=== PATIENT | female | born 1955 | race Caucasian/White ===

== ENCOUNTER 2022-11-15 14:13 | Inpatient (IN) | payer MEDICARE ==
[2022-11-15] MEDS ORDERED: DUONEB 0.5-3 MG/3 ml Neb IH ONE ×2 (14:51→15:13)
[2022-11-15] MEDS ORDERED: Sodium Chloride 0.9% 1000 ML 1,000 ML IV STA (14:51)
[2022-11-15] MEDS ORDERED: solu-MEDROL 125 MG, Sterile H2O 10 ml 2 ML IV ONE ×2 (14:51)
[2022-11-15] MEDS ORDERED: Sodium Chloride 0.9% 1000 ML 1,000 ML ONE (15:03)
[2022-11-15] MEDS ORDERED: solu-MEDROL ONE (15:03)
[2022-11-15] MEDS ORDERED: Sterile H2O 10 ml IJ ONE (15:04)
[2022-11-15 15:20] LABS: Absolute Neutrophil Ct (ANC) 14.21 x10^3/uL (1.4-6.9); Basophil (Absolute #) 0.05 x10^3/uL (0-0.4); Eosinophil % 0.2 % (0.00-5.0); Eosinophil (Absolute #) 0.03 x10^3/uL (0-0.5); Hematocrit 38.9 % (35-47); Hemoglobin 13.2 g/dL (12.0-16.0); Lymphocytes % 8.5 % (24.0-44.0); Mean Corpuscular Hemoglobin 29.5 pg (26-32); Mean Corpuscular Hgb Concent. 33.9 g/dL (32-36); Mean Platelet Volume 9.4 fL (7.5-11.0); Monocyte (Absolute #) 1.73 x10^3/uL (0.0-1.3); Monocytes % 9.8 % (0.0-12.0); Neutrophil % 80.4 % (36.0-66.0); Platelet Count 422 x10^3/uL (150-450); Red Blood Count 4.47 x10^6/uL (4.1-5.4); Red Cell Distribution Width 12.5 % (11.5-14.0); White Blood Count 17.7 x10^3/uL (4.0-10.5)
[2022-11-15 15:42] LABS: ALBUMIN 3.7 g/dL (3.5-5.0); ALKALINE PHOSPHATASE 132 U/L (38-126); ANION GAP 10.3 MEQ/L (5-15); BLOOD UREA NITROGEN 6 mg/dL (7-17); CHLORIDE 94 mmol/L (98-107); Calcium 8.3 mg/dL (8.4-10.2); Carbon Dioxide 23 mmol/L (22-30); EST GLOMERULAR FILTRATION RATE > 60.0 ML/MIN; Glucose 140 mg/dL (74-106); NT PRO BNP 415 pg/mL (0-900); Potassium 3.4 mmol/L (3.5-5.1); SGOT/AST 20 U/L (14-36); SGPT/ALT 18 U/L (0-35); SODIUM 124 mmol/L (137-145); Total Protein 7.3 g/dL (6.3-8.2)
[2022-11-15 16:03] LABS: INFLUENZA A NEGATIVE (NEGATIVE); INFLUENZA B NEGATIVE (NEGATIVE); RESPIRATORY SYNCTIAL VIRUS NEGATIVE (Negative); SARS-CoV-2 Xpert Express NEGATIVE (NEGATIVE)
[2022-11-15] MEDS ORDERED: Zithromax 500 MG/ 250 ML NaCl Premix 500 MG/250 ML IVPB IV STA (16:15)
[2022-11-15] MEDS ORDERED: ROCEPHIN 2 Gm-D5w 50ML BAG** 2 G/50 ML IVPB IV STA (16:15)
[2022-11-15 16:40] LABS: Slide Review 1 YES
[2022-11-15] MEDS ORDERED: ROCEPHIN 2 Gm-D5w 50ML BAG** 2 G/50 ML IVPB IV ONE (16:42)
--- NOTE | 2022-11-15 16:43 | ERPHSYRPT ---
- History of Present Illness Time Seen by Provider: 11/15/22 14:18 Patient Subjective Stated Complaint: Pt was diagnosed 4 days ago from [facility] with strep throat and hasn't been able to sleep due to a cough, decreased a ppetite and not taking in any fluids and has gotten really weak and worn down Triage Nursing Assessment: Pt brought to the ER by her son, hypertensive, denies pain, does c/o of a terrible headache that comes and goes, pulses normal, skin n/w/d, has been on antibiotic for 4 days for strep throat and states that her throat has never hurt but has a horrible cough, unable to sleep due to the cough, thinks that she has had a fever off and on Physician History: 67-year-old female with history of tobacco abuse, COPD presented in the ER with 10-day history of URI symptoms with sore throat cough congestion, was evaluated outpatient on penicillin for strep throat getting worsening cough productive of clear to yellow sputum with generalized weakness fatigue and tiredness. Patient reports she has a weight loss of 5 to 6 pounds in the last 2 weeks and does not want to eat or drink anything. Denies any chest pain but wheezing with subjective feeling of fever and chills. Timing/Duration: day(s) (10), gradual onset, worse Activities at Onset: activity Severity of Dyspnea-Max: moderate Severity of Dyspnea-Current: moderate Possible Cause: illness exposure Modifying Factors: Worsens With: coughing, exertion Associated Symptoms: cough, fever, loss of appetite, wheezing, heaviness, productive cough, tightness Allergies/Adverse Reactions: betamethasone [From Celestone] Adverse Reaction (Verified 11/15/22 14:39) Home Medications: No Reportable Medications [No Reported Medications] 11/15/22 [History] Hx Influenza Vaccination/Date Given: Yes Hx Pneumococcal Vaccination/Date Given: No Travel Risk - International Travel Have you traveled outside of the country in past 3 weeks: No - Coronavirus Screening Are you exhibiting any of the following symptoms?: Yes Symptoms: Fever, Cough: New Onset, Shortness of Breath, Vomiting/Diarrhea, Headaches/Body Aches/Fatigue Close contact with a COVID-19 positive Pt in past 14-21 Days: No - Vaccine Status Have you recieved a Covid-19 vaccination: Yes Neurologist: [facility] - Vaccination Dates Date of 2cond Vaccination (if applicable): 2020 - Review of Systems Constitutional: Fever, Chills, Fatigue, Weakness Eyes: No Symptoms Ears, Nose, & Throat: Nose Congestion, Throat Pain Respiratory: Cough, Dyspnea, Wheezing Cardiac: No Symptoms Abdominal/Gastrointestinal: No Symptoms Genitourinary Symptoms: No Symptoms Musculoskeletal: Myalgias Skin: No Symptoms Neurological: No Symptoms Psychological: No Symptoms Hematologic/Lymphatic: No Symptoms Immunological/Allergic: No Symptoms - Past Medical History Pertinent Past Medical History: No - Past Surgical History Past Surgical History: Yes Gastrointestinal: Cholecystectomy Female Surgical History: Hysterectomy, Tubal Ligation - Social History Smoking Status: Current every day smoker Exposure to second hand smoke: Yes Drug Use: none Patient Lives Alone: No - Nursing Vital Signs Nursing Vital Signs: Initial Vital Signs Temperature 98.3 F 11/15/22 14:23 Pulse Rate 83 11/15/22 14:23 Blood Pressure 157/88 11/15/22 14:23 O2 Sat by Pulse Oximetry 94 L 11/15/22 14:23 Pain Scale Pain Intensity 3 - Physical Exam General Appearance: no apparent distress, alert Eye Exam: PERRL/EOMI Ears, Nose, Throat Exam: hearing grossly normal, nasal congestion, pharyngeal erythema Neck Exam: normal inspection, non-tender, supple, full range of motion Respiratory Exam: diminished breath sounds, rhonchi, wheezing, No respiratory distress Cardiovascular/Chest Exam: normal heart sounds, regular rate/rhythm Abdominal/Gastrointestinal Exam: soft, normal bowel sounds, No tenderness Extremity Exam: non-tender, normal range of motion Neurologic Exam: alert, oriented x 3, cooperative, cane cutter II-XII nml as tested Skin Exam: normal color SpO2 Interpretation: normal SpO2: 99 O2 Delivery: Room Air Ordered Tests: Active Orders 24 hr Category Date Time Status Bedrest ROUTINE Activity 11/15/22 17:02 Active Up With Assistance ROUTINE Activity 11/15/22 17:02 Active Code Status Order ROUTINE Care 11/15/22 17:02 Active Fall Protocol Q1H Care 11/15/22 17:02 Active IV Care Q6H Care 11/15/22 17:02 Active IV Insertion STAT Care 11/15/22 14:51 Completed Oxygen-ED Only Nasal Cannula 2 lpm Care 11/15/22 16:[address] in Observation ROUTINE Care 11/15/22 17:02 Active Andrew Hose, Apply ROUTINE Care 11/15/22 17:02 Active Weight,Daily 0600 Care 11/15/22 17:02 Active House Regular Diet Diet 11/16/22 Breakfast Active CHEST 1 VIEW (PORTABLE) Stat Exams 11/15/22 15:32 Completed BLOOD CULTURE Stat Lab 11/15/22 15:07 Received CBC W DIFF AM.LAB Lab 11/16/22 04:00 Ordered CBC W DIFF Stat Lab 11/15/22 15:00 Completed CMP AM.LAB Lab 11/16/22 04:00 Ordered CMP Stat Lab 11/15/22 15:00 Completed Lactic Acid Stat Lab 11/15/22 14:51 Completed MAGNESIUM Stat Lab 11/15/22 15:00 Completed NT PRO BNP Stat Lab 11/15/22 15:00 Completed TROPONIN Q4H Lab 11/15/22 15:00 Completed TROPONIN Q4H Lab 11/15/22 19:01 Completed TROPONIN Q4H Lab 11/15/22 23:00 Ordered Respiratory Therapy Assessment DAILY RT 11/15/22 15:09 Completed Transfer Order Routine Transfer 11/15/22 Completed Medication Summary Generic Name Dose Route Start Last Admin Trade Name Freq PRN Reason Stop Dose Admin Albuterol Sulfate 2.5 mg 11/15/22 19:00 11/15/22 19:50 Albuterol Sulfate 2.5 Mg/3 Ml [facility] 12/15/22 18:59 2.5 mg TIDRT [facility] Administration Albuterol Sulfate 2.5 mg 11/15/22 17:41 Albuterol Sulfate 2.5 Mg/3 Ml [facility] 12/15/22 17:40 Q4H PRN PRN SHORTNESS OF BREATH/WHEEZING Methylprednisolone Sodium 0 mg 11/15/22 18:00 11/15/22 17:26 Succinate 60 mg/ Sterile Water IV 12/15/22 17:59 Not Given 2 ml Q6HT MARE Sodium Chloride 1,000 mls @ 100 mls/hr 11/15/22 17:02 Sodium Chloride 0.9% 1000 Ml IV 12/15/22 17:01 .Q10H MARE Azithromycin 500 mg in 250 mls @ 250 mls/hr 11/16/22 10:00 Zithromax 500 Mg/ 250 Ml Nacl Premix IV 12/16/22 09:59 Q24H10 MARE Ceftriaxone Sodium/Dextrose 2 g in 50 mls @ 100 mls/hr 11/16/22 10:00 Rocephin 2 Gm-D5w 50ml Bag IV 11/19/22 09:59 Q24H10 MARE Morphine Sulfate 2 mg 11/15/22 17:02 Morphine Sulfate 2 Mg/Ml Inj IV 11/20/22 17:01 Q4H PRN PRN PAIN Ondansetron HCl 4 mg 11/15/22 17:02 Ondansetron Hcl 4 Mg/2 Ml Vial IV 12/15/22 17:01 Q6H PRN PRN NAUSEA/VOMITING Pantoprazole Sodium 40 mg 11/16/22 10:00 Pantoprazole 40 Mg Vial IV 12/16/22 09:59 Q24H10 MARE Discontinued Medications Generic Name Dose Route Start Last Admin Trade Name Freq PRN Reason Stop Dose Admin Albuterol/Ipratropium 3 ml 11/15/22 14:51 11/15/22 15:08 Ipratropium/Albuterol Sulfate 3 Ml Ampul.Neb 11/15/22 14:52 3 ml STAT ONE Administration Albuterol/Ipratropium Confirm 11/15/22 15:13 Ipratropium/Albuterol Sulfate 3 Ml Ampul.Neb Administered 11/15/22 15:14 Dose 3 ml IH .STK-MED ONE Albuterol/Ipratropium 3 ml 11/15/22 19:00 Ipratropium/Albuterol Sulfate 3 Ml Ampul.Neb 12/15/22 18:59 Q6HRT [facility] Methylprednisolone Sodium 0 mg 11/15/22 14:51 11/15/22 15:09 Succinate 125 mg/ Sterile IV 11/15/22 14:52 125 mg Water 2 ml STAT ONE Administration Sodium Chloride 1,000 mls @ 999 mls/hr 11/15/22 14:51 11/15/22 16:34 Sodium Chloride 0.9% 1000 Ml IV 11/15/22 15:51 Infused .Q1H1M STA Infusion Sodium Chloride Confirm 11/15/22 15:03 Sodium Chloride 0.9% 1000 Ml Administered 11/15/22 15:04 Dose 1,000 mls @ ud .ROUTE .STK-MED ONE Azithromycin 500 mg in 250 mls @ 250 mls/hr 11/15/22 16:15 11/15/22 17:25 Zithromax 500 Mg/ 250 Ml Nacl Premix IV 11/15/22 17:14 250 mls/hr STAT STA Administration Ceftriaxone Sodium/Dextrose 2 g in 50 mls @ 100 mls/hr 11/15/22 16:15 11/15/22 16:43 Rocephin 2 Gm-D5w 50ml Bag IV 11/15/22 16:44 100 ml/hr STAT STA 100 mls/hr Administration Ceftriaxone Sodium/Dextrose Confirm 11/15/22 16:42 Rocephin 2 Gm-D5w 50ml Bag Administered 11/15/22 16:43 Dose 2 g in 50 mls @ ud IV .STK-MED ONE Azithromycin Confirm 11/15/22 17:20 Zithromax 500 Mg/ 250 Ml Nacl Premix Administered 11/15/22 17:21 Dose 500 mg in 250 mls @ ud IV .STK-MED ONE Methylprednisolone Sodium Succinate Confirm 11/15/22 15:03 Methylprednis Sod Succ 125 Mg/2 Ml Vial Administered 11/15/22 15:04 Dose 125 mg .ROUTE .STK-MED ONE Sterile Water Confirm 11/15/22 15:04 Water For Injection,Sterile 10 Ml Vial Administered 11/15/22 15:05 Dose 10 ml IJ .STK-MED ONE Lab/Rad Data: Laboratory Result Diagrams 11/15/22 15:00 11/15/22 15:00 Laboratory Results 11/15/22 11/15/22 11/15/22 Range/Units 15:07 15:00 15:00 WBC (4.0-10.5) x10^3/uL RBC (4.1-5.4) x10^6/uL Hgb (12.0-16.0) g/dL Hct (35-47) % MCV (78-100) fL MCH (26-32) pg MCHC (32-36) g/dL RDW (11.5-14.0) % Plt Count (150-450) x10^3/uL MPV (7.5-11.0) fL Gran % (36.0-66.0) % Immature Gran % (Auto) (0.00-0.4) % Nucleat RBC Rel Count (0.00-0.1) % Eos # (Auto) (0-0.5) x10^3/uL Immature Gran # (Auto) (0.00-0.03) x10^3u/L Absolute Lymphs (auto) (1.0-4.6) x10^3/uL Absolute Monos (auto) (0.0-1.3) x10^3/uL Absolute Nucleated RBC (0.00-0.01) x10^3u/L Lymphocytes % (24.0-44.0) % Monocytes % (0.0-12.0) % Eosinophils % (0.00-5.0) % Basophils % (0.0-0.4) % Absolute Granulocytes (1.4-6.9) x10^3/uL Basophils # (0-0.4) x10^3/uL Sodium 124 L (137-145) mmol/L Potassium 3.4 L (3.5-5.1) mmol/L Chloride 94 L (98-107) mmol/L Carbon Dioxide 23 (22-30) mmol/L Anion Gap 10.3 (5-15) MEQ/L BUN 6 L (7-17) mg/dL Creatinine 0.60 (0.52-1.04) mg/dL Estimated GFR > 60.0 ML/MIN Glucose 140 H (74-106) mg/dL Lactic Acid (0.4-2.0) Calcium 8.3 L (8.4-10.2) mg/dL Magnesium 2.0 (1.6-2.3) mg/dL Total Bilirubin 0.90 (0.2-1.3) mg/dL AST 20 (14-36) U/L ALT 18 (0-35) U/L Alkaline Phosphatase 132 H (38-126) U/L Troponin I < 0.012 (0.000-0.034) ng/mL NT-Pro-B Natriuret Pep 415 (0-900) pg/mL Serum Total Protein 7.3 (6.3-8.2) g/dL Albumin 3.7 (3.5-5.0) g/dL Influenza Type A Ag NEGATIVE (NEGATIVE) Influenza Type B Ag NEGATIVE (NEGATIVE) RSV (PCR) NEGATIVE (Negative) SARS-CoV-2 (PCR) NEGATIVE (NEGATIVE) Slides for Path Review 11/15/22 11/15/22 Range/Units 15:00 14:51 WBC 17.7 H (4.0-10.5) x10^3/uL RBC 4.47 (4.1-5.4) x10^6/uL Hgb 13.2 (12.0-16.0) g/dL Hct 38.9 (35-47) % MCV 87.0 (78-100) fL MCH 29.5 (26-32) pg MCHC 33.9 (32-36) g/dL RDW 12.5 (11.5-14.0) % Plt Count 422 (150-450) x10^3/uL MPV 9.4 (7.5-11.0) fL Gran % 80.4 H (36.0-66.0) % Immature Gran % (Auto) 0.8 H (0.00-0.4) % Nucleat RBC Rel Count 0.0 (0.00-0.1) % Eos # (Auto) 0.03 (0-0.5) x10^3/uL Immature Gran # (Auto) 0.14 H (0.00-0.03) x10^3u/L Absolute Lymphs (auto) 1.50 (1.0-4.6) x10^3/uL Absolute Monos (auto) 1.73 H (0.0-1.3) x10^3/uL Absolute Nucleated RBC 0.00 (0.00-0.01) x10^3u/L Lymphocytes % 8.5 L (24.0-44.0) % Monocytes % 9.8 (0.0-12.0) % Eosinophils % 0.2 (0.00-5.0) % Basophils % 0.3 (0.0-0.4) % Absolute Granulocytes 14.21 H (1.4-6.9) x10^3/uL Basophils # 0.05 (0-0.4) x10^3/uL Sodium (137-145) mmol/L Potassium (3.5-5.1) mmol/L Chloride (98-107) mmol/L Carbon Dioxide (22-30) mmol/L Anion Gap (5-15) MEQ/L BUN (7-17) mg/dL Creatinine (0.52-1.04) mg/dL Estimated GFR ML/MIN Glucose (74-106) mg/dL Lactic Acid 1.1 (0.4-2.0) Calcium (8.4-10.2) mg/dL Magnesium (1.6-2.3) mg/dL Total Bilirubin (0.2-1.3) mg/dL AST (14-36) U/L ALT (0-35) U/L Alkaline Phosphatase (38-126) U/L Troponin I (0.000-0.034) ng/mL NT-Pro-B Natriuret Pep (0-900) pg/mL Serum Total Protein (6.3-8.2) g/dL Albumin (3.5-5.0) g/dL Influenza Type A Ag (NEGATIVE) Influenza Type B Ag (NEGATIVE) RSV (PCR) (Negative) SARS-CoV-2 (PCR) (NEGATIVE) Slides for Path Review YES - Progress Progress: improved Air Movement: good Progress Note: 11/15/22 16:39 She is given DuoNeb and Solu-Medrol along with fluid bolus, feeling better on reevaluation. Still satting around 90/91%. Placed on 2 L oxygen. Work-up showed white count of 17 and sodium of 124, no previous comparison available. Chest x-ray reviewed by me showing bilateral airspace disease, started on Rocephin and Zithromax. We will continue with gentle hydration. Discussed with Dr. Lazar, reviewed history, work-up and agreed with admission. Blood Culture(s) Obtained: Yes Antibiotics given: Yes Discussed with : Rito Counseled pt/family regarding: lab results, diagnosis, need for follow-up, rad results, smoking cessation - Departure Departure Disposition: Observation Clinical Impression: Pneumonia, Hyponatremia Condition: Stable Critical Care Time: No
[2022-11-15] MEDS ORDERED: MORPHINE SULFATE 2 MG INJ IV PRN (17:02)
[2022-11-15] MEDS ORDERED: Zofran 4 MG/2 ML VIAL IV PRN (17:02)
[2022-11-15] MEDS ORDERED: Zithromax 500 MG/ 250 ML NaCl Premix 500 MG/250 ML IVPB IV ONE (17:20)
[2022-11-15] MEDS: solu-MEDROL 60 MG, Sterile H2O 10 ml 2 ML IV SCH ×2 (17:26)
[2022-11-15] MEDS ORDERED: PROVENTIL 2.5 MG/3 ML NEB IH PRN (17:41)
--- NOTE | 2022-11-15 18:12 | XRAY ---
Indication: Cough. Comparison: None Portable chest demonstrates COPD/CIPD. Left mid lung and lesser degree the right base demonstrates patchy airspace disease without consolidation/large effusion. Heart not enlarged. Bony thorax intact with osteopenia.
[2022-11-15] MEDS ORDERED: DUONEB 0.5-3 MG/3 ml Neb IH SCH (19:00)
[2022-11-15] MEDS: PROVENTIL 2.5 MG/3 ML NEB IH SCH (19:50)
[2022-11-16] MEDS ORDERED: solu-MEDROL ONE ×2 (00:25→05:29)
[2022-11-16] MEDS: solu-MEDROL 60 MG, Sterile H2O 10 ml 2 ML IV SCH ×10 (00:29→23:45)
[2022-11-16] MEDS: Sodium Chloride 0.9% 1000 ML 1,000 ML IV SCH ×3 (04:32→16:19)
[2022-11-16] MEDS ORDERED: Sterile H2O 10 ml IJ ONE (05:29)
[2022-11-16 05:40] LABS: Absolute Neutrophil Ct (ANC) 12.47 x10^3/uL (1.4-6.9); Basophil (Absolute #) 0.02 x10^3/uL (0-0.4); Eosinophil (Absolute #) 0 x10^3/uL (0-0.5); Hematocrit 32.7 % (35-47); Hemoglobin 11.3 g/dL (12.0-16.0); Lymphocyte (Absolute #) 1.02 x10^3/uL (1.0-4.6); Lymphocytes % 7.3 % (24.0-44.0); Mean Cell Volume 84.9 fL (78-100); Mean Corpuscular Hemoglobin 29.4 pg (26-32); Mean Corpuscular Hgb Concent. 34.6 g/dL (32-36); Mean Platelet Volume 9.5 fL (7.5-11.0); Monocyte (Absolute #) 0.34 x10^3/uL (0.0-1.3); Monocytes % 2.4 % (0.0-12.0); Neutrophil % 89.5 % (36.0-66.0); Platelet Count 390 x10^3/uL (150-450); Red Blood Count 3.85 x10^6/uL (4.1-5.4); Red Cell Distribution Width 12.3 % (11.5-14.0)
[2022-11-16 06:08] LABS: ALBUMIN 3.1 g/dL (3.5-5.0); ALKALINE PHOSPHATASE 130 U/L (38-126); ANION GAP 8.8 MEQ/L (5-15); BLOOD UREA NITROGEN 7 mg/dL (7-17); CHLORIDE 99 mmol/L (98-107); Carbon Dioxide 24 mmol/L (22-30); Creatinine 1 0.49 mg/dL (0.52-1.04); EST GLOMERULAR FILTRATION RATE > 60.0 ML/MIN; Glucose 155 mg/dL (74-106); Potassium 3.5 mmol/L (3.5-5.1); SGOT/AST 18 U/L (14-36); SGPT/ALT 16 U/L (0-35); SODIUM 128 mmol/L (137-145); Total Protein 6.4 g/dL (6.3-8.2)
[2022-11-16] MEDS ORDERED: APRESOLINE 20 MG/ML INJ IV PRN (06:27)
[2022-11-16] MEDS ORDERED: PROVENTIL 2.5 MG/3 ML NEB IH ONE (07:03)
[2022-11-16] MEDS: PROVENTIL 2.5 MG/3 ML NEB IH SCH ×3 (07:15→22:05)
[2022-11-16] MEDS: Zithromax 500 MG/ 250 ML NaCl Premix 500 MG/250 ML IVPB IV SCH (09:13)
[2022-11-16] MEDS: NORVASC 5 MG PO SCH (09:14)
[2022-11-16] MEDS: ROCEPHIN 2 Gm-D5w 50ML BAG** 2 G/50 ML IVPB IV SCH (09:14)
[2022-11-16] MEDS: PROTONIX 40 MG IV IV SCH (09:14)
--- NOTE | 2022-11-16 13:08 | PCM.HP ---
History of Present Illness - Chief Complaint Chief Complaint: Pneumonia, hyponatremia History of Present Illness: is a 67 year old female of [address] Paula Montes with COPD, HTN, and TOB abuse who was admitted for bilat pneumonia. CXR L mid and R base airspace dz and COPD. she was started on rocephin and zithromax with 60mg IV steroid q6h. on morphine 2mg q4h prn. The RN noticed a large mass encompassing the L breast. Pt says it started small in Aug 2021 and has enlarge.d Her mom had lung Ca and her daughter is pos for BRCA and had both breasts removed recently. Pt knew this could be something bad but hasn't had mammograms or gotten an evaluation. - Review of Systems Constitutional: Fever (to 100.2), Chills Respiratory: Cough, Short Of Breath Abdominal/Gastrointestinal: Diarrhea (lots this illness), Appetite Changes Neurological: Headache (has resolved today) All Other Systems: Reviewed and Negative Medications & Allergies Home Medications: Home Medication List No Reportable Medications [No Reported Medications] 11/15/22 [History Confirmed 11/15/22] Allergies/Adverse Reactions: Allergies Allergy/AdvReac Type Severity Reaction Status Date / Time betamethasone AdvReac Verified 11/15/22 14:39 [From Celestone] - Past Medical History Past Medical History: No Neurological History: No Pertinent History ENT History: No Pertinent History Cardiac History: No Pertinent History Respiratory History: Pneumonia Endocrine Medical History: No Pertinent History Musculoskelatal History: No Pertinent History GI Medical History: No Pertinent History History: No Pertinent History Pyscho-Social History: Anxiety Reproductive Disorders: No Pertinent History - Past Surgical History Past Surgical History: Yes Neuro Surgical History: No Pertinent History Cardiac History: No Pertinent History Respiratory Surgery: No Pertinent History GI Surgical History: Cholecystectomy Genitourinary Surgical Hx: No Pertinent History Musculskeletal Surgical Hx: No Pertinent History Female Surgical History: Hysterectomy, Tubal Ligation - Social History Smoking Status: Current every day smoker How long have you smoked: 50 Exposure to second hand smoke: Yes Alcohol: None Drug Use: none - Physical Exam Vital Signs: Vital Signs - 24 hr Temp Pulse Resp BP Pulse Ox 11/16/22 12:00 97.7 F 77 18 132/68 94 L 11/16/22 07:51 96.9 F 78 19 191/95 93 L 11/16/22 07:22 76 16 93 L 11/16/22 04:00 97.5 F 69 20 133/60 94 L 11/15/22 23:41 98.3 F 72 16 161/74 95 11/15/22 20:17 99 11/15/22 20:00 98.6 F 81 20 137/77 95 11/15/22 19:51 83 18 93 L 11/15/22 17:36 86 16 96 11/15/22 17:20 97.9 F 85 19 183/79 96 11/15/22 17:02 97.9 F 83 16 183/79 96 11/15/22 16:50 84 18 182/95 95 11/15/22 15:20 83 16 99 11/15/22 15:17 73 18 95 11/15/22 14:23 98.3 F 83 157/88 94 L General Appearance: no apparent distress, alert Neurologic Exam: oriented x 3, cooperative Eye Exam: eyes nml inspection Ears, Nose, Throat Exam: moist mucous membranes Neck Exam: normal inspection, non-tender, No lymphadenopathy, No thyromegaly Respiratory Exam: diminished breath sounds (good airexchange), rhonchi (scattered), wheezing (RUL), No crackles/rales Cardiovascular Exam: regular rate/rhythm, normal heart sounds, No murmur Gastrointestinal/Abdomen Exam: soft, normal bowel sounds, No tenderness, No distention, No mass, No guarding, No rebound Back Exam: normal inspection, No rash Skin Exam: other (L breast: fungating hard mass, involvong the entire breast, fungating at nipple. NTTP. R breast nl.) Results - Labs Lab/Micro Results: Lab Results-Last 24 Hours 11/15/22 11/15/22 11/15/22 Range/Units 14:51 15:00 15:00 WBC 17.7 H (4.0-10.5) x10^3/uL RBC 4.47 (4.1-5.4) x10^6/uL Hgb 13.2 (12.0-16.0) g/dL Hct 38.9 (35-47) % MCV 87.0 (78-100) fL MCH 29.5 (26-32) pg MCHC 33.9 (32-36) g/dL RDW 12.5 (11.5-14.0) % Plt Count 422 (150-450) x10^3/uL MPV 9.4 (7.5-11.0) fL Gran % 80.4 H (36.0-66.0) % Immature Gran % (Auto) 0.8 H (0.00-0.4) % Nucleat RBC Rel Count 0.0 (0.00-0.1) % Eos # (Auto) 0.03 (0-0.5) x10^3/uL Immature Gran # (Auto) 0.14 H (0.00-0.03) x10^3u/L Absolute Lymphs (auto) 1.50 (1.0-4.6) x10^3/uL Absolute Monos (auto) 1.73 H (0.0-1.3) x10^3/uL Absolute Nucleated RBC 0.00 (0.00-0.01) x10^3u/L Lymphocytes % 8.5 L (24.0-44.0) % Monocytes % 9.8 (0.0-12.0) % Eosinophils % 0.2 (0.00-5.0) % Basophils % 0.3 (0.0-0.4) % Absolute Granulocytes 14.21 H (1.4-6.9) x10^3/uL Basophils # 0.05 (0-0.4) x10^3/uL Sodium 124 L (137-145) mmol/L Potassium 3.4 L (3.5-5.1) mmol/L Chloride 94 L (98-107) mmol/L Carbon Dioxide 23 (22-30) mmol/L Anion Gap 10.3 (5-15) MEQ/L BUN 6 L (7-17) mg/dL Creatinine 0.60 (0.52-1.04) mg/dL Estimated GFR > 60.0 ML/MIN Glucose 140 H (74-106) mg/dL Lactic Acid 1.1 (0.4-2.0) Calcium 8.3 L (8.4-10.2) mg/dL Magnesium 2.0 (1.6-2.3) mg/dL Total Bilirubin 0.90 (0.2-1.3) mg/dL AST 20 (14-36) U/L ALT 18 (0-35) U/L Alkaline Phosphatase 132 H (38-126) U/L Troponin I (0.000-0.034) ng/mL NT-Pro-B Natriuret Pep 415 (0-900) pg/mL Serum Total Protein 7.3 (6.3-8.2) g/dL Albumin 3.7 (3.5-5.0) g/dL Influenza Type A Ag (NEGATIVE) Influenza Type B Ag (NEGATIVE) RSV (PCR) (Negative) SARS-CoV-2 (PCR) (NEGATIVE) Slides for Path Review YES 11/15/22 11/15/22 11/15/22 Range/Units 15:00 15:07 19:01 WBC (4.0-10.5) x10^3/uL RBC (4.1-5.4) x10^6/uL Hgb (12.0-16.0) g/dL Hct (35-47) % MCV (78-100) fL MCH (26-32) pg MCHC (32-36) g/dL RDW (11.5-14.0) % Plt Count (150-450) x10^3/uL MPV (7.5-11.0) fL Gran % (36.0-66.0) % Immature Gran % (Auto) (0.00-0.4) % Nucleat RBC Rel Count (0.00-0.1) % Eos # (Auto) (0-0.5) x10^3/uL Immature Gran # (Auto) (0.00-0.03) x10^3u/L Absolute Lymphs (auto) (1.0-4.6) x10^3/uL Absolute Monos (auto) (0.0-1.3) x10^3/uL Absolute Nucleated RBC (0.00-0.01) x10^3u/L Lymphocytes % (24.0-44.0) % Monocytes % (0.0-12.0) % Eosinophils % (0.00-5.0) % Basophils % (0.0-0.4) % Absolute Granulocytes (1.4-6.9) x10^3/uL Basophils # (0-0.4) x10^3/uL Sodium (137-145) mmol/L Potassium (3.5-5.1) mmol/L Chloride (98-107) mmol/L Carbon Dioxide (22-30) mmol/L Anion Gap (5-15) MEQ/L BUN (7-17) mg/dL Creatinine (0.52-1.04) mg/dL Estimated GFR ML/MIN Glucose (74-106) mg/dL Lactic Acid (0.4-2.0) Calcium (8.4-10.2) mg/dL Magnesium (1.6-2.3) mg/dL Total Bilirubin (0.2-1.3) mg/dL AST (14-36) U/L ALT (0-35) U/L Alkaline Phosphatase (38-126) U/L Troponin I < 0.012 0.024 (0.000-0.034) ng/mL NT-Pro-B Natriuret Pep (0-900) pg/mL Serum Total Protein (6.3-8.2) g/dL Albumin (3.5-5.0) g/dL Influenza Type A Ag NEGATIVE (NEGATIVE) Influenza Type B Ag NEGATIVE (NEGATIVE) RSV (PCR) NEGATIVE (Negative) SARS-CoV-2 (PCR) NEGATIVE (NEGATIVE) Slides for Path Review 11/15/22 11/16/22 11/16/22 Range/Units 23:36 04:59 04:59 WBC 14.0 H (4.0-10.5) x10^3/uL RBC 3.85 L (4.1-5.4) x10^6/uL Hgb 11.3 L (12.0-16.0) g/dL Hct 32.7 L (35-47) % MCV 84.9 (78-100) fL MCH 29.4 (26-32) pg MCHC 34.6 (32-36) g/dL RDW 12.3 (11.5-14.0) % Plt Count 390 (150-450) x10^3/uL MPV 9.5 (7.5-11.0) fL Gran % 89.5 H (36.0-66.0) % Immature Gran % (Auto) 0.7 H (0.00-0.4) % Nucleat RBC Rel Count 0.0 (0.00-0.1) % Eos # (Auto) 0 (0-0.5) x10^3/uL Immature Gran # (Auto) 0.10 H (0.00-0.03) x10^3u/L Absolute Lymphs (auto) 1.02 (1.0-4.6) x10^3/uL Absolute Monos (auto) 0.34 (0.0-1.3) x10^3/uL Absolute Nucleated RBC 0.00 (0.00-0.01) x10^3u/L Lymphocytes % 7.3 L (24.0-44.0) % Monocytes % 2.4 (0.0-12.0) % Eosinophils % 0.0 (0.00-5.0) % Basophils % 0.1 (0.0-0.4) % Absolute Granulocytes 12.47 H (1.4-6.9) x10^3/uL Basophils # 0.02 (0-0.4) x10^3/uL Sodium 128 L (137-145) mmol/L Potassium 3.5 (3.5-5.1) mmol/L Chloride 99 (98-107) mmol/L Carbon Dioxide 24 (22-30) mmol/L Anion Gap 8.8 (5-15) MEQ/L BUN 7 (7-17) mg/dL Creatinine 0.49 L (0.52-1.04) mg/dL Estimated GFR > 60.0 ML/MIN Glucose 155 H (74-106) mg/dL Lactic Acid (0.4-2.0) Calcium 8.0 L (8.4-10.2) mg/dL Magnesium (1.6-2.3) mg/dL Total Bilirubin 0.50 (0.2-1.3) mg/dL AST 18 (14-36) U/L ALT 16 (0-35) U/L Alkaline Phosphatase 130 H (38-126) U/L Troponin I 0.024 (0.000-0.034) ng/mL NT-Pro-B Natriuret Pep (0-900) pg/mL Serum Total Protein 6.4 (6.3-8.2) g/dL Albumin 3.1 L (3.5-5.0) g/dL Influenza Type A Ag (NEGATIVE) Influenza Type B Ag (NEGATIVE) RSV (PCR) (Negative) SARS-CoV-2 (PCR) (NEGATIVE) Slides for Path Review - Radiology Impressions Radiology Exams & Impressions: Radiology Procedures Category Date Time Status CHEST 1 VIEW (PORTABLE) Stat Exams 11/15/22 15:32 Completed - Other Procedures and Tests Respiratory Therapy 11/15/22 17:34 Respiratory Therapy Assessment DAILY 11/15/22 17:35 Oxygen Nasal Cannula 2 lpm Assessment/Plan (1) Pneumonia Current Visit: Yes Status: Acute Qualifiers: Pneumonia type: due to unspecified organism Laterality: bilateral Lung location: unspecified part of lung Qualified Code(s): J18.9 - Pneumonia, unspecified organism Assessment & Plan: On day #2 of rocephin and zithromax, with IV steroid 60mg q6h Code(s): J18.9 - PNEUMONIA, UNSPECIFIED ORGANISM (2) Hyponatremia Current Visit: Yes Status: Acute Assessment & Plan: improved since admission, 128 today Code(s): E87.1 - HYPO-OSMOLALITY AND HYPONATREMIA (3) Breast cancer Current Visit: Yes Status: Acute Qualifiers: Breast location: unspecified site of breast Estrogen receptor status: unspecified Patient sex: female Laterality: left Qualified Code(s): C50.912 - Malignant neoplasm of unspecified site of left female breast Assessment & Plan: I said I would consult surgery for biopsy, although this is clinically quite certainly breast cancer. She refused. Would like to call Dr. Branden Nava and get her own appointment, I advised she may need referral and can call our office to get one. Advised she needs to have this evaluated bill as it is certainly breast cancer.
[2022-11-16] MEDS: Tessalon Perles 100 MG PO PRN (23:46)
[2022-11-17] MEDS: Sodium Chloride 0.9% 1000 ML 1,000 ML IV SCH ×2 (00:05→16:48)
[2022-11-17] MEDS: solu-MEDROL 60 MG, Sterile H2O 10 ml 2 ML IV SCH ×6 (05:39→19:18)
[2022-11-17] MEDS ORDERED: Sodium Chloride 3 ML UD NEBULES IH ONE (07:35)
[2022-11-17] MEDS: PROVENTIL 2.5 MG/3 ML NEB IH SCH ×3 (07:37→18:17)
[2022-11-17 09:18] LABS: Absolute Neutrophil Ct (ANC) 17.04 x10^3/uL (1.4-6.9); Basophil (Absolute #) 0.03 x10^3/uL (0-0.4); Eosinophil % 0.1 % (0.00-5.0); Eosinophil (Absolute #) 0.01 x10^3/uL (0-0.5); Hematocrit 33.2 % (35-47); Hemoglobin 11.2 g/dL (12.0-16.0); Lymphocytes % 6.3 % (24.0-44.0); Mean Cell Volume 86.7 fL (78-100); Mean Corpuscular Hemoglobin 29.2 pg (26-32); Mean Corpuscular Hgb Concent. 33.7 g/dL (32-36); Mean Platelet Volume 9.1 fL (7.5-11.0); Monocyte (Absolute #) 0.44 x10^3/uL (0.0-1.3); Monocytes % 2.3 % (0.0-12.0); Platelet Count 410 x10^3/uL (150-450); Red Blood Count 3.83 x10^6/uL (4.1-5.4); Red Cell Distribution Width 12.7 % (11.5-14.0); White Blood Count 19.1 x10^3/uL (4.0-10.5)
[2022-11-17] MEDS: PROTONIX 40 MG IV IV SCH (09:51)
[2022-11-17] MEDS: NORVASC 5 MG PO SCH (09:51)
[2022-11-17 09:55] LABS: ANION GAP 9.9 MEQ/L (5-15); BLOOD UREA NITROGEN 8 mg/dL (7-17); CHLORIDE 103 mmol/L (98-107); Calcium 8.1 mg/dL (8.4-10.2); Carbon Dioxide 22 mmol/L (22-30); Creatinine 1 0.46 mg/dL (0.52-1.04); EST GLOMERULAR FILTRATION RATE > 60.0 ML/MIN; Glucose 188 mg/dL (74-106); Potassium 3.6 mmol/L (3.5-5.1); SODIUM 131 mmol/L (137-145)
[2022-11-17] MEDS: Zithromax 500 MG/ 250 ML NaCl Premix 500 MG/250 ML IVPB IV SCH (09:56)
[2022-11-17] MEDS: ROCEPHIN 2 Gm-D5w 50ML BAG** 2 G/50 ML IVPB IV SCH (10:38)
[2022-11-17] MEDS ORDERED: HUMALOG SQ PRN (12:47)
--- NOTE | 2022-11-17 12:51 | PCM.NOTE ---
Date and Time: 11/17/22 1248 Subjective Assessment: Pt decided last night to workup the breast mass. No new complaints. Peggy po fine. - Review of Systems Constitutional: No Fever Respiratory: Cough, Short Of Breath Objective Exam General Appearance: no apparent distress, alert Neurologic Exam: oriented x 3, cooperative Skin Exam: normal color, warm, dry, No rash Eye Exam: eyes nml inspection Ears, Nose, Throat Exam: moist mucous membranes Neck Exam: normal inspection Respiratory Exam: diminished breath sounds (good air exchange), crackles/rales (RLL), wheezing, No rhonchi Cardiovascular Exam: regular rate/rhythm, normal heart sounds, No murmur Extremity Exam: normal inspection, No pedal edema, No swelling Back Exam: normal inspection, No rash OBJECTIVE DATA Vital Signs: Vital Signs - 24 hr Temp Pulse Resp BP Pulse Ox 11/17/22 08:34 98.1 F 62 16 136/64 94 L 11/17/22 07:41 60 16 96 11/17/22 04:04 97.8 F 60 20 171/74 95 11/17/22 00:30 162/87 11/17/22 00:00 97.5 F 88 28 H 186/81 93 L 11/16/22 22:05 79 16 96 11/16/22 20:26 98.8 F 89 22 135/60 93 L 11/16/22 16:30 88 20 95 11/16/22 16:00 97.6 F 87 17 155/74 96 11/16/22 13:20 75 16 95 Pain Assessment - Last Documented Pain Intensity 0 Intake and Output: Intake & Output 11/15/22 11/16/22 11/17/22 11/18/22 11:59 11:59 11:59 11:59 Intake Total 19860 Output Total 1550 1900 Balance 437 3800 Weight 61.1 kg 60 kg Lab Results: Lab Results-Last 24 Hours 11/17/22 11/17/22 Range/Units 09:14 09:14 WBC 19.1 H (4.0-10.5) x10^3/uL RBC 3.83 L (4.1-5.4) x10^6/uL Hgb 11.2 L (12.0-16.0) g/dL Hct 33.2 L (35-47) % MCV 86.7 (78-100) fL MCH 29.2 (26-32) pg MCHC 33.7 (32-36) g/dL RDW 12.7 (11.5-14.0) % Plt Count 410 (150-450) x10^3/uL MPV 9.1 (7.5-11.0) fL Gran % 89.0 H (36.0-66.0) % Immature Gran % (Auto) 2.1 H (0.00-0.4) % Nucleat RBC Rel Count 0.0 (0.00-0.1) % Eos # (Auto) 0.01 (0-0.5) x10^3/uL Immature Gran # (Auto) 0.40 H (0.00-0.03) x10^3u/L Absolute Lymphs (auto) 1.20 (1.0-4.6) x10^3/uL Absolute Monos (auto) 0.44 (0.0-1.3) x10^3/uL Absolute Nucleated RBC 0.00 (0.00-0.01) x10^3u/L Lymphocytes % 6.3 L (24.0-44.0) % Monocytes % 2.3 (0.0-12.0) % Eosinophils % 0.1 (0.00-5.0) % Basophils % 0.2 (0.0-0.4) % Absolute Granulocytes 17.04 H (1.4-6.9) x10^3/uL Basophils # 0.03 (0-0.4) x10^3/uL Sodium 131 L (137-145) mmol/L Potassium 3.6 (3.5-5.1) mmol/L Chloride 103 (98-107) mmol/L Carbon Dioxide 22 (22-30) mmol/L Anion Gap 9.9 (5-15) MEQ/L BUN 8 (7-17) mg/dL Creatinine 0.46 L (0.52-1.04) mg/dL Estimated GFR > 60.0 ML/MIN Glucose 188 H (74-106) mg/dL Calcium 8.1 L (8.4-10.2) mg/dL Radiology Exams: Radiology Procedures Category Date Time Status ABDOMEN AND PELVIS W CONTRAST [CT] Urgent Exams 11/17/22 12:45 Ordered CHEST 1 VIEW (PORTABLE) Stat Exams 11/15/22 15:32 Completed CHEST WITH CONTRAST [CT] Routine Exams 11/17/22 12:45 Ordered Assessment/Plan (1) Pneumonia Current Visit: Yes Status: Acute Qualifiers: Pneumonia type: due to unspecified organism Laterality: bilateral Lung location: unspecified part of lung Qualified Code(s): J18.9 - Pneumonia, unspecified organism Assessment & Plan: On day #3 rocephin and zithromax. Improving slowly. On 2L O2 per NC (at home doesn't require O2). Code(s): J18.9 - PNEUMONIA, UNSPECIFIED ORGANISM (2) Hyponatremia Current Visit: Yes Status: Acute Assessment & Plan: improved - Na up to 131 today. Code(s): E87.1 - HYPO-OSMOLALITY AND HYPONATREMIA (3) Breast cancer Current Visit: Yes Status: Chronic Qualifiers: Breast location: unspecified site of breast Estrogen receptor status: unspecified Patient sex: female Laterality: left Qualified Code(s): C50.912 - Malignant neoplasm of unspecified site of left female breast Assessment & Plan: Pt agrees to workup - will do CT chest/abd/pelvis and have surgery consult for biopsy. I discussed with her two sons, as they were unaware there was an issue.
[2022-11-17] MEDS ORDERED: Sodium Chloride 3 ML UD NEBULES IH SCH (13:00)
[2022-11-17] MEDS ORDERED: solu-MEDROL ONE (23:53)
[2022-11-18] MEDS: solu-MEDROL 60 MG, Sterile H2O 10 ml 2 ML IV SCH ×4 (00:01→06:25)
[2022-11-18] MEDS: Sodium Chloride 0.9% 1000 ML 1,000 ML IV SCH ×2 (03:38→15:33)
[2022-11-18 05:08] LABS: Absolute Neutrophil Ct (ANC) 14.11 x10^3/uL (1.4-6.9); Basophil (Absolute #) 0.02 x10^3/uL (0-0.4); Eosinophil (Absolute #) 0 x10^3/uL (0-0.5); Hematocrit 33.6 % (35-47); Hemoglobin 11.4 g/dL (12.0-16.0); Lymphocyte (Absolute #) 1.13 x10^3/uL (1.0-4.6); Lymphocytes % 6.8 % (24.0-44.0); Mean Cell Volume 85.7 fL (78-100); Mean Corpuscular Hemoglobin 29.1 pg (26-32); Mean Corpuscular Hgb Concent. 33.9 g/dL (32-36); Monocyte (Absolute #) 0.51 x10^3/uL (0.0-1.3); Monocytes % 3.1 % (0.0-12.0); Neutrophil % 85.5 % (36.0-66.0); Platelet Count 426 x10^3/uL (150-450); Red Blood Count 3.92 x10^6/uL (4.1-5.4); Red Cell Distribution Width 12.8 % (11.5-14.0); White Blood Count 16.5 x10^3/uL (4.0-10.5)
[2022-11-18 05:35] LABS: ANION GAP 8.8 MEQ/L (5-15); BLOOD UREA NITROGEN 9 mg/dL (7-17); CHLORIDE 103 mmol/L (98-107); Carbon Dioxide 24 mmol/L (22-30); Creatinine 1 0.49 mg/dL (0.52-1.04); EST GLOMERULAR FILTRATION RATE > 60.0 ML/MIN; Glucose 168 mg/dL (74-106); Potassium 3.1 mmol/L (3.5-5.1); SODIUM 133 mmol/L (137-145)
[2022-11-18] MEDS: PROVENTIL 2.5 MG/3 ML NEB IH SCH ×3 (05:40→23:00)
[2022-11-18] MEDS: Tessalon Perles 100 MG PO PRN ×2 (05:43→22:31)
[2022-11-18] MEDS ORDERED: Ativan 0.5 MG PO PRN (08:04)
--- NOTE | 2022-11-18 08:05 | PCM.NOTE ---
Date and Time: 11/18/22 0759 Subjective Assessment: She is doing well, slept earlier in the evening then up since 2 am. Feeling "francesca short of breath today ." Down to 1L NC today, from 2 L NC O2 yesterday. Peggy po. - Review of Systems Constitutional: No Fever Respiratory: Cough, Short Of Breath Objective Exam General Appearance: no apparent distress, alert Neurologic Exam: oriented x 3, cooperative Skin Exam: normal color, warm, dry, No rash Eye Exam: eyes nml inspection Ears, Nose, Throat Exam: moist mucous membranes Neck Exam: normal inspection Respiratory Exam: diminished breath sounds (good air exchange), rhonchi (bilat at bases, mild), other (L breast enlarged, apparent even on lung exam), No crackles/rales, No wheezing Cardiovascular Exam: regular rate/rhythm, normal heart sounds, No murmur Gastrointestinal/Abdomen Exam: soft, normal bowel sounds, No tenderness, No distention, No mass, No guarding, No rebound Extremity Exam: normal inspection, No pedal edema, No swelling, No tenderness Back Exam: normal inspection, No rash OBJECTIVE DATA Vital Signs: Vital Signs - 24 hr Temp Pulse Resp BP Pulse Ox 11/18/22 07:10 98.3 F 84 16 178/81 91 L 11/18/22 05:40 87 18 93 L 11/18/22 04:00 97.1 F 72 18 92 L 11/17/22 23:21 98.6 F 77 20 141/64 95 11/17/22 19:39 97.7 F 87 17 181/78 96 11/17/22 18:19 85 14 93 L 11/17/22 16:19 98.4 F 75 16 166/74 93 L 11/17/22 13:32 91 H 16 93 L 11/17/22 13:00 97.6 F 76 16 164/71 96 11/17/22 08:34 98.1 F 62 16 136/64 94 L Pain Assessment - Last Documented Pain Intensity 0 Intake and Output: Intake & Output 11/15/22 11/16/22 11/17/22 11/18/22 11:59 11:59 11:59 11:59 Intake Total 1154 5700 2916 Output Total 7400 1900 400 Balance 437 3800 9186 Weight 61.1 kg 60 kg 65.8 kg Lab Results: Lab Results-Last 24 Hours 11/17/22 11/17/22 11/18/22 Range/Units 09:14 09:14 04:38 WBC 19.1 H 16.5 H (4.0-10.5) x10^3/uL RBC 3.83 L 3.92 L (4.1-5.4) x10^6/uL Hgb 11.2 L 11.4 L (12.0-16.0) g/dL Hct 33.2 L 33.6 L (35-47) % MCV 86.7 85.7 (78-100) fL MCH 29.2 29.1 (26-32) pg MCHC 33.7 33.9 (32-36) g/dL RDW 12.7 12.8 (11.5-14.0) % Plt Count 410 426 (150-450) x10^3/uL MPV 9.1 9.0 (7.5-11.0) fL Gran % 89.0 H 85.5 H (36.0-66.0) % Immature Gran % (Auto) 2.1 H 4.5 H (0.00-0.4) % Nucleat RBC Rel Count 0.0 0.0 (0.00-0.1) % Eos # (Auto) 0.01 0 (0-0.5) x10^3/uL Immature Gran # (Auto) 0.40 H 0.74 H (0.00-0.03) x10^3u/L Absolute Lymphs (auto) 1.20 1.13 (1.0-4.6) x10^3/uL Absolute Monos (auto) 0.44 0.51 (0.0-1.3) x10^3/uL Absolute Nucleated RBC 0.00 0.00 (0.00-0.01) x10^3u/L Lymphocytes % 6.3 L 6.8 L (24.0-44.0) % Monocytes % 2.3 3.1 (0.0-12.0) % Eosinophils % 0.1 0.0 (0.00-5.0) % Basophils % 0.2 0.1 (0.0-0.4) % Absolute Granulocytes 17.04 H 14.11 H (1.4-6.9) x10^3/uL Basophils # 0.03 0.02 (0-0.4) x10^3/uL Sodium 131 L (137-145) mmol/L Potassium 3.6 (3.5-5.1) mmol/L Chloride 103 (98-107) mmol/L Carbon Dioxide 22 (22-30) mmol/L Anion Gap 9.9 (5-15) MEQ/L BUN 8 (7-17) mg/dL Creatinine 0.46 L (0.52-1.04) mg/dL Estimated GFR > 60.0 ML/MIN Glucose 188 H (74-106) mg/dL POC Glucometer (74 to 106) mg/dL Calcium 8.1 L (8.4-10.2) mg/dL 11/18/22 11/18/22 Range/Units 04:38 07:35 WBC (4.0-10.5) x10^3/uL RBC (4.1-5.4) x10^6/uL Hgb (12.0-16.0) g/dL Hct (35-47) % MCV (78-100) fL MCH (26-32) pg MCHC (32-36) g/dL RDW (11.5-14.0) % Plt Count (150-450) x10^3/uL MPV (7.5-11.0) fL Gran % (36.0-66.0) % Immature Gran % (Auto) (0.00-0.4) % Nucleat RBC Rel Count (0.00-0.1) % Eos # (Auto) (0-0.5) x10^3/uL Immature Gran # (Auto) (0.00-0.03) x10^3u/L Absolute Lymphs (auto) (1.0-4.6) x10^3/uL Absolute Monos (auto) (0.0-1.3) x10^3/uL Absolute Nucleated RBC (0.00-0.01) x10^3u/L Lymphocytes % (24.0-44.0) % Monocytes % (0.0-12.0) % Eosinophils % (0.00-5.0) % Basophils % (0.0-0.4) % Absolute Granulocytes (1.4-6.9) x10^3/uL Basophils # (0-0.4) x10^3/uL Sodium 133 L (137-145) mmol/L Potassium 3.1 L (3.5-5.1) mmol/L Chloride 103 (98-107) mmol/L Carbon Dioxide 24 (22-30) mmol/L Anion Gap 8.8 (5-15) MEQ/L BUN 9 (7-17) mg/dL Creatinine 0.49 L (0.52-1.04) mg/dL Estimated GFR > 60.0 ML/MIN Glucose 168 H (74-106) mg/dL POC Glucometer 165 H (74 to 106) mg/dL Calcium 8.0 L (8.4-10.2) mg/dL Radiology Exams: Radiology Procedures Category Date Time Status ABDOMEN AND PELVIS W CONTRAST [CT] Urgent Exams 11/17/22 12:45 Taken CHEST WITH CONTRAST [CT] Routine Exams 11/17/22 12:45 Taken Assessment/Plan (1) Pneumonia Current Visit: Yes Status: Acute Qualifiers: Pneumonia type: due to unspecified organism Laterality: bilateral Lung location: unspecified part of lung Qualified Code(s): J18.9 - Pneumonia, unspecified organism Assessment & Plan: Much improved, down to 1L NC, will probably be ready to discharge to home in 1-2 days. Code(s): J18.9 - PNEUMONIA, UNSPECIFIED ORGANISM (2) Hyponatremia Current Visit: Yes Status: Acute Assessment & Plan: improved, up tfrom 124 at admission steadily to 133 today. Code(s): E87.1 - HYPO-OSMOLALITY AND HYPONATREMIA (3) Breast cancer Current Visit: Yes Status: Chronic Qualifiers: Breast location: unspecified site of breast Estrogen receptor status: unspecified Patient sex: female Laterality: left Qualified Code(s): C50.912 - Malignant neoplasm of unspecified site of left female breast Assessment & Plan: grossly, clinically. To get biopsy today, thank you. Await read of Chest/Abd/Pelvis CT. Will need oncology f/u outpatient. (4) Hypokalemia Current Visit: Yes Status: Acute Assessment & Plan: OK to do K+ protocol. Code(s): E87.6 - HYPOKALEMIA (5) Anxiety Current Visit: Yes Status: Acute Assessment & Plan: ativan prn Code(s): F41.9 - ANXIETY DISORDER, UNSPECIFIED
[2022-11-18] MEDS: ROCEPHIN 2 Gm-D5w 50ML BAG** 2 G/50 ML IVPB IV SCH (08:37)
[2022-11-18] MEDS: Tums EX 750 MG PO SCH (08:37)
[2022-11-18] MEDS: NORVASC 5 MG PO SCH (08:37)
[2022-11-18] MEDS: PROTONIX 40 MG IV IV SCH (08:37)
--- NOTE | 2022-11-18 08:43 | XRAY ---
Indication: Pneumonia. Recent diagnosis breast cancer. Multiple contiguous axial images obtained through the chest using 80 cc Isovue 370 contrast. Comparison: None Lungs hyperinflated with mild/moderate diffuse scattered subsegmental atelectasis/scarring greatest in both lower lobes. Also tiny bilateral effusions. No suspicious pulmonary mass/nodule or pneumothorax. Heart not enlarged. Aorta is normal in course and caliber. Tiny subcarinal calcified node. No pathologic mediastinal/hilar lymphadenopathy. Bony thorax intact with mild degenerative changes throughout the spine. Also C6-C7 degenerative changes as evidenced by endplate spurring and sclerosis. T2 vertebral body demonstrates right-sided sclerotic lesion including right pedicle worrisome for metastasis. Large breast mass measuring at least 3.4 x 6.2 cm in greatest axial dimension presumed known malignancy. CT abdomen/pelvis reported separately. Impression: 1. Scattered bilateral subsegmental atelectasis/scarring with tiny bilateral effusions. 2. Large left breast mass presumed known malignancy. 3. T2 vertebral body metastasis. If not already performed, PET/CT could be performed for staging purposes.
--- NOTE | 2022-11-18 08:47 | XRAY ---
Indication: Recent diagnosis breast cancer. Multiple contiguous axial images obtained through the abdomen and pelvis using 80 cc Isovue 370 contrast. Comparison: None CT chest reported separately. Noncontrasted stomach and bowel loops appear nonobstructed. Mild diffuse scattered colonic fecal debris throughout. Cholecystectomy and hysterectomy reported. No free fluid/air. Remaining liver, pancreas, spleen, adrenal glands, kidneys, ureters, and bladder are unremarkable. Minimal scattered aortoiliac calcifications. No AAA or pathologic retroperitoneal lymphadenopathy. Osseous structures intact with mild osteopenia and L1-L2/L5-S1 degenerative disc disease. Tiny 3 mm round L1 sclerotic lesion, probable bone island. Impression: 1. Mild diffuse fecal stasis, minimal arteriosclerotic disease, and chronic bony findings. 2. Remaining CT abdomen/pelvis with contrast exam is negative. 3. If not already performed, PET/CT could be performed for staging purposes.
[2022-11-18] MEDS: Klor Con PO SCH ×4 (09:51→15:34)
[2022-11-18] MEDS: Zithromax 500 MG/ 250 ML NaCl Premix 500 MG/250 ML IVPB IV SCH (09:52)
[2022-11-18] MEDS ORDERED: DIPRIVAN 200 MG/20 ML IV ONE (18:28)
[2022-11-18] MEDS ORDERED: Xylocaine-Mpf 2% 5 Ml Vial ONE (18:28)
[2022-11-18] MEDS ORDERED: Versed 2 MG/2 ML Injection ONE (18:29)
[2022-11-18] MEDS ORDERED: Ketamine HCl 50 MG/ML ONE (18:29)
[2022-11-18] MEDS ORDERED: SUBLIMAZE 100 MCG/2 ML ONE (18:29)
[2022-11-18] MEDS ORDERED: Sensorcaine 0.25% 10 ML ONE (18:42)
[2022-11-18] MEDS ORDERED: APRESOLINE 20 MG/ML INJ ONE (19:13)
[2022-11-18] MEDS: solu-MEDROL 40 MG, Sterile H2O 10 ml 1 ML IV SCH ×2 (22:31)
[2022-11-18] MEDS ORDERED: ATARAX 25 MG PO PRN (23:35)
[2022-11-19] MEDS: Sodium Chloride 0.9% 1000 ML 1,000 ML IV SCH (01:03)
[2022-11-19 05:35] LABS: Absolute Neutrophil Ct (ANC) 10.45 x10^3/uL (1.4-6.9); Basophil (Absolute #) 0.04 x10^3/uL (0-0.4); Eosinophil (Absolute #) 0 x10^3/uL (0-0.5); Hematocrit 32.1 % (35-47); Hemoglobin 10.9 g/dL (12.0-16.0); Lymphocyte (Absolute #) 1.07 x10^3/uL (1.0-4.6); Lymphocytes % 8.2 % (24.0-44.0); Mean Cell Volume 86.1 fL (78-100); Mean Corpuscular Hemoglobin 29.2 pg (26-32); Mean Platelet Volume 8.6 fL (7.5-11.0); Monocyte (Absolute #) 0.68 x10^3/uL (0.0-1.3); Monocytes % 5.2 % (0.0-12.0); Neutrophil % 79.7 % (36.0-66.0); Platelet Count 318 x10^3/uL (150-450); Red Blood Count 3.73 x10^6/uL (4.1-5.4); Red Cell Distribution Width 12.8 % (11.5-14.0); White Blood Count 13.1 x10^3/uL (4.0-10.5)
[2022-11-19 06:33] LABS: ANION GAP 5.5 MEQ/L (5-15); BLOOD UREA NITROGEN 12 mg/dL (7-17); CHLORIDE 108 mmol/L (98-107); Calcium 7.7 mg/dL (8.4-10.2); Carbon Dioxide 25 mmol/L (22-30); Creatinine 1 0.59 mg/dL (0.52-1.04); EST GLOMERULAR FILTRATION RATE > 60.0 ML/MIN; Glucose 152 mg/dL (74-106); MAGNESIUM 2.2 mg/dL (1.6-2.3); Potassium 3.6 mmol/L (3.5-5.1); SODIUM 135 mmol/L (137-145)
[2022-11-19 07:08] LABS: Lymphocytes 17 % (24-44); Total Cells Counted 100
[2022-11-19 07:12] LABS: Platelet Estimate NORMAL (NORMAL)
[2022-11-19] MEDS: PROVENTIL 2.5 MG/3 ML NEB IH SCH ×2 (07:17→13:29)
[2022-11-19] MEDS: PROTONIX 40 MG IV IV SCH (08:50)
[2022-11-19] MEDS: Tums EX 750 MG PO SCH (08:50)
[2022-11-19] MEDS: solu-MEDROL 40 MG, Sterile H2O 10 ml 1 ML IV SCH ×2 (08:50)
[2022-11-19] MEDS: NORVASC 5 MG PO SCH (08:50)
[2022-11-19] MEDS: ROCEPHIN 2 Gm-D5w 50ML BAG** 2 G/50 ML IVPB IV SCH ×2 (08:50→09:42)
--- NOTE | 2022-11-19 09:21 | OP ---
SURGERY DATE/TIME: 11/18/2022 040 PREOPERATIVE DIAGNOSIS: Breast cancer, left. POSTOPERATIVE DIAGNOSIS: Breast cancer, left. PROCEDURE: Full thickness incisional biopsy of left breast nipple and breast with closure. SURGEON: Dayday Nava M.D. ANESTHESIA: MAC. COMPLICATIONS: None. CONDITION: Stable. INDICATION: The patient has fungating left breast. She has not had biopsy to date. She is in the hospital. She requires biopsy. DESCRIPTION OF PROCEDURE: She is taken to surgery. At 9:00 location full thickness wedge-like of the skin, breast tissue, areolar tissue and nipple were taken and closed with 2-0 chromic. This was clearly malignant in appearance grossly. The patient tolerated the procedure satisfactorily.
[2022-11-19] MEDS: Zithromax 500 MG/ 250 ML NaCl Premix 500 MG/250 ML IVPB IV SCH (09:43)
--- NOTE | 2022-11-19 11:26 | PCM.DS ---
Discharge Summary Date of Admission: 11/16/22 13:02 Admitting Physician: OLIVIA RAND Consults: Consults on Case 11/17/22 12:44 Consult Surgery ROUTINE Primary Care Provider: HONG MARTIN Allergies Allergies betamethasone [From Celestone] Adverse Reaction (Verified 11/15/22 14:39) Hospital Summary - Hospital Course Hospital Course: Pt is 67 yo female with likely COPD and HTN who was admitted to hospital with pneumonia. CXR showed L mid and R lower lung airspace disease; she was started on IV rocephin and zithromax (today is day #5). She was also wheezing and started on solumedrol 40mg IV BID. RN noted a large mass of L breast; initially pt did not want to work up what is clinically a large breast cancer, but the next day she changed her mind and she actually had a biopsy by Dr. Dayday Nava yesterday. She had CT chest/abd/pelvis to look for possible metastases; there is a concerning area on T2 but nothing else found. Her BP have been elevated to 180 systolic and up to 200 systolic. She was started on po amlodipine and she will take her BP at home. Home today, as she has been off O2 x 24h. Home on antibiotic to finish 10d (augmentin), Prednisone, probiotic, albuterol neb, amlodipine, and bp cuff. - Vitals & Intake/Output Vital Signs: Vital Signs Temperature 98.6 F 11/19/22 07:24 Pulse Rate 71 11/19/22 08:12 Respiratory Rate 18 11/19/22 08:12 Blood Pressure 182/79 11/19/22 07:24 O2 Sat by Pulse Oximetry 95 11/19/22 08:12 Intake & Output: Intake & Output 11/16/22 11/17/22 11/18/22 11/19/22 11:59 11:59 11:59 11:59 Intake Total 1987 0620 2916 2781 Output Total 9160 1900 400 Balance 437 4183 5506 1885 Weight 61.1 kg 60 kg 65.8 kg 66.043 kg - Lab Result Diagrams: 11/19/22 05:29 11/19/22 05:29 Lab Results-Last 24 Hrs: Lab Results-Last 24 Hours 11/18/22 11/18/22 11/18/22 Range/Units 11:21 13:16 16:24 WBC (4.0-10.5) x10^3/uL RBC (4.1-5.4) x10^6/uL Hgb (12.0-16.0) g/dL Hct (35-47) % MCV (78-100) fL MCH (26-32) pg MCHC (32-36) g/dL RDW (11.5-14.0) % Plt Count (150-450) x10^3/uL MPV (7.5-11.0) fL Gran % (36.0-66.0) % Immature Gran % (Auto) (0.00-0.4) % Nucleat RBC Rel Count (0.00-0.1) % Eos # (Auto) (0-0.5) x10^3/uL Immature Gran # (Auto) (0.00-0.03) x10^3u/L Absolute Lymphs (auto) (1.0-4.6) x10^3/uL Absolute Monos (auto) (0.0-1.3) x10^3/uL Absolute Nucleated RBC (0.00-0.01) x10^3u/L Lymphocytes % (24.0-44.0) % Monocytes % (0.0-12.0) % Eosinophils % (0.00-5.0) % Basophils % (0.0-0.4) % Absolute Granulocytes (1.4-6.9) x10^3/uL Segmented Neutrophils (36.0-66.0) % Lymphocytes (Manual) (24-44) % Basophils # (0-0.4) x10^3/uL Platelet Estimate (NORMAL) RBC Morphology Sodium (137-145) mmol/L Potassium 3.1 L (3.5-5.1) mmol/L Chloride (98-107) mmol/L Carbon Dioxide (22-30) mmol/L Anion Gap (5-15) MEQ/L BUN (7-17) mg/dL Creatinine (0.52-1.04) mg/dL Estimated GFR ML/MIN Glucose (74-106) mg/dL POC Glucometer 143 H 132 H (74 to 106) mg/dL Calcium (8.4-10.2) mg/dL Magnesium (1.6-2.3) mg/dL 11/18/22 11/18/22 11/19/22 Range/Units 17:40 22:46 05:29 WBC 13.1 H (4.0-10.5) x10^3/uL RBC 3.73 L (4.1-5.4) x10^6/uL Hgb 10.9 L (12.0-16.0) g/dL Hct 32.1 L (35-47) % MCV 86.1 (78-100) fL MCH 29.2 (26-32) pg MCHC 34.0 (32-36) g/dL RDW 12.8 (11.5-14.0) % Plt Count 318 (150-450) x10^3/uL MPV 8.6 (7.5-11.0) fL Gran % 79.7 H (36.0-66.0) % Immature Gran % (Auto) 6.6 H (0.00-0.4) % Nucleat RBC Rel Count 0.0 (0.00-0.1) % Eos # (Auto) 0 (0-0.5) x10^3/uL Immature Gran # (Auto) 0.86 H (0.00-0.03) x10^3u/L Absolute Lymphs (auto) 1.07 (1.0-4.6) x10^3/uL Absolute Monos (auto) 0.68 (0.0-1.3) x10^3/uL Absolute Nucleated RBC 0.00 (0.00-0.01) x10^3u/L Lymphocytes % 8.2 L (24.0-44.0) % Monocytes % 5.2 (0.0-12.0) % Eosinophils % 0.0 (0.00-5.0) % Basophils % 0.3 (0.0-0.4) % Absolute Granulocytes 10.45 H (1.4-6.9) x10^3/uL Segmented Neutrophils 83 H (36.0-66.0) % Lymphocytes (Manual) 17 L (24-44) % Basophils # 0.04 (0-0.4) x10^3/uL Platelet Estimate NORMAL (NORMAL) RBC Morphology NORMAL Sodium (137-145) mmol/L Potassium 3.7 (3.5-5.1) mmol/L Chloride (98-107) mmol/L Carbon Dioxide (22-30) mmol/L Anion Gap (5-15) MEQ/L BUN (7-17) mg/dL Creatinine (0.52-1.04) mg/dL Estimated GFR ML/MIN Glucose (74-106) mg/dL POC Glucometer 189 H (74 to 106) mg/dL Calcium (8.4-10.2) mg/dL Magnesium (1.6-2.3) mg/dL 11/19/22 11/19/22 Range/Units 05:29 06:50 WBC (4.0-10.5) x10^3/uL RBC (4.1-5.4) x10^6/uL Hgb (12.0-16.0) g/dL Hct (35-47) % MCV (78-100) fL MCH (26-32) pg MCHC (32-36) g/dL RDW (11.5-14.0) % Plt Count (150-450) x10^3/uL MPV (7.5-11.0) fL Gran % (36.0-66.0) % Immature Gran % (Auto) (0.00-0.4) % Nucleat RBC Rel Count (0.00-0.1) % Eos # (Auto) (0-0.5) x10^3/uL Immature Gran # (Auto) (0.00-0.03) x10^3u/L Absolute Lymphs (auto) (1.0-4.6) x10^3/uL Absolute Monos (auto) (0.0-1.3) x10^3/uL Absolute Nucleated RBC (0.00-0.01) x10^3u/L Lymphocytes % (24.0-44.0) % Monocytes % (0.0-12.0) % Eosinophils % (0.00-5.0) % Basophils % (0.0-0.4) % Absolute Granulocytes (1.4-6.9) x10^3/uL Segmented Neutrophils (36.0-66.0) % Lymphocytes (Manual) (24-44) % Basophils # (0-0.4) x10^3/uL Platelet Estimate (NORMAL) RBC Morphology Sodium 135 L (137-145) mmol/L Potassium 3.6 (3.5-5.1) mmol/L Chloride 108 H (98-107) mmol/L Carbon Dioxide 25 (22-30) mmol/L Anion Gap 5.5 (5-15) MEQ/L BUN 12 (7-17) mg/dL Creatinine 0.59 (0.52-1.04) mg/dL Estimated GFR > 60.0 ML/MIN Glucose 152 H (74-106) mg/dL POC Glucometer 146 H (74 to 106) mg/dL Calcium 7.7 L (8.4-10.2) mg/dL Magnesium 2.2 (1.6-2.3) mg/dL Micro Results-Entire Visit: Microbiology 11/15/22 15:07 Blood Culture - Preliminary Blood NO GROWTH TO DATE 11/15/22 15:00 Blood Culture - Preliminary Blood NO GROWTH TO DATE Accuchecks Date 11/19/22 Date 11/18/22 Date 11/18/22 Time 07:22 Time 16:47 Time 11:41 - Radiology Exams Ordered Rad Exams-Entire Visit: Radiology Procedures Category Date Time Status ABDOMEN AND PELVIS W CONTRAST [CT] Urgent Exams 11/17/22 12:45 Completed CHEST WITH CONTRAST [CT] Routine Exams 11/17/22 12:45 Completed - Procedures and Test Procedures and Tests throughout Hospitalization: Therapy Orders & Screens 11/15/22 15:09 Respiratory Therapy Assessment DAILY Comment: 11/15/22 17:34 Respiratory Therapy Assessment DAILY Comment: Diagnosis: Pneumonia, hyponatremia 11/15/22 17:35 Oxygen Nasal Cannula 2 lpm Comment: Diagnosis: Pneumonia, hyponatremia 11/17/22 07:53 Flutter Therapy UD Comment: Diagnosis: Pneumonia, hyponatremia Discharge Exam General Appearance: no apparent distress, alert Neurologic Exam: oriented x 3, cooperative Eye Exam: eyes nml inspection Ears, Nose, Throat Exam: moist mucous membranes Neck Exam: normal inspection, non-tender, supple, No lymphadenopathy, No subcutaneous emphysema, No thyromegaly Respiratory Exam: lungs clear, diminished breath sounds (good air exchange), No crackles/rales, No rhonchi, No wheezing Cardiovascular Exam: regular rate/rhythm, normal heart sounds, No murmur Extremity Exam: normal inspection, No pedal edema, No swelling Skin Exam: normal color, warm, dry, No rash Wound Assessment: Skin/Wound Assessment Wound/Incision Assessment Start: 11/19/22 01:31 Text: Status: Active Freq: Protocol: Document 11/19/22 01:31 PARESH (Rec: 11/19/22 01:34 PARESH [id number]) Wound/Incision Assessment Left Chest Wound Assessment New Finding Wound Type Incision Dressing Status Dry & Intact Drainage Amount None Comment 4x4 and te[address] in place to left breast post biopsy Wound Photo Photo Taken No Final Diagnosis/Problem List - Final Discharge Diagnosis/Problem (1) Pneumonia Current Visit: Yes Status: Acute Assessment & Plan: Much improved, finish 5 more d abx (10d total). Doing great, feels much better this a.m. Code(s): J18.9 - PNEUMONIA, UNSPECIFIED ORGANISM (2) Hyponatremia Current Visit: Yes Status: Acute Assessment & Plan: was 124 on admission, improved to 135 today. Code(s): E87.1 - HYPO-OSMOLALITY AND HYPONATREMIA (3) Breast cancer Current Visit: Yes Status: Chronic Assessment & Plan: biopsy pending. Dr. Nava to refer to Dr. Huffman. (4) Hypokalemia Current Visit: Yes Status: Acute Code(s): E87.6 - HYPOKALEMIA (5) Anxiety Current Visit: Yes Status: Acute Code(s): F41.9 - ANXIETY DISORDER, UNSPECIFIED - Discharge Disposition: Home, Self-Care Condition: Good Prescriptions: New Lactobacillus Acidophilus [Acidophilus TABLET] 1 tab PO BID #10 tablet Hydroxyzine HCl 25 mg [Atarax 25 mg] 25 mg PO QID PRN PRN #30 tablet PRN Reason: Anxiety Amox Tr/Potass Clav. 875 mg [Augmentin 875-125 Tablet] 875 mg PO BID #10 tablet Blood Pressure Test Kit-Medium [Blood Pressure Cuff Monitor] 1 each MC DAILY #1 kit Prednisone 20 mg [Deltasone 20 mg] 20 mg PO DAILY 7 Days #17 tablet Amlodipine Besylate 5 mg [Norvasc 5 mg] 5 mg PO QAM 30 Days #30 tablet Albuterol 2.5 mg/3 ml Neb [Proventil 2.5 mg/3 ml Neb] 2.5 mg IH Q4H PRN PRN 7 Days #30 unit PRN Reason: Shortness Of Breath/Wheezing Calcium Carbonate 750 mg [Tums EX 750 MG] 750 mg PO DAILY tablet Additional Instructions: NEB MACHINE ORDERED THRU [facility]- CALL THEM WHEN YOU GET HOME SO THEY CAN ARRANGE DELIVERY. THEIR PHONE NUMBER IS [phone] Follow up with: HONG MARTIN [Primary Care Provider] -
[2022-11-19 11:53] VITALS: BP 201/93
[2022-11-19 13:31] VITALS: PULSE 88; O2SAT 94
== END 2022-11-19 15:57 | disposition home or self-care (01) | DRG 988 ==
LOC: ED 14:13 → MED SURG 17:00 → OBSVTOIN 11-16 13:02
PROVIDERS: ADMIT Family Medicine; ATTEND Family Medicine
PROC: 0HBX0ZX Excision of Left Nipple, Open Approach, Diagnostic (ICD-10-PCS; principal; 2022-11-18)
DX: J18.9 Pneumonia, unspecified organism (principal); E87.1 Hypo-osmolality and hyponatremia; C50.912 Malignant neoplasm of unspecified site of left female breast; E87.6 Hypokalemia; F41.9 Anxiety disorder, unspecified; J44.9 Chronic obstructive pulmonary disease, unspecified; I10 Essential (primary) hypertension; Z80.1 Family history of malignant neoplasm of trachea, bronchus and lung; Z20.828 Contact with and (suspected) exposure to other viral communicable diseases; Z72.0 Tobacco use
CPT/HCPCS: 0241U; 19101; 36000; 36415; 71045; 71260; 74177; 80048; 80053; 82947; 83036; 83605; 83735; 83880; 84132; 84484; 85025; 87040; 93268; 94640; 94667; 94668; 94760; 96360; 96365; 96374; 99285; G0378; J0360; J0456; J0696; J2250; J2704; J2920; J2930; J3010; J7609; A9270-GY

== ENCOUNTER 2022-11-23 09:13 | Emergency (ER) | payer MEDICARE ==
[2022-11-23] MEDS ORDERED: CLONIDINE 0.1 MG TABLET ONE (09:22)
[2022-11-23] MEDS ORDERED: CLONIDINE 0.1 MG TABLET PO ONE (09:22)
--- NOTE | 2022-11-23 09:41 | ERPHSYRPT ---
- History of Present Illness Source: patient Exam Limitations: no limitations Patient Subjective Stated Complaint: pt reports hypertension for 3 days, denies any s/s, reports recent hospitalization for pneumonia and very recent dx of breast CA Triage Nursing Assessment: pt is aox3, pt appears anxious, pupils perrl, afebrile, resps easy and non labored, radial pulses strong and equal, cap refill < 3 seconds, pt skin pink warm dry. Physician History: 67 yo WF recently discharged from hospital after admit for pneumonia presents w increased BP x 4 days. Pt diagnosed w HTN while in hospital and started on Norvasc 5mg daily. She also got diagnosed while in the hospital w breast cancer and is somewhat tearful. Pt is lightheaded but denies headache. She also denies focal weakness/chest pain/dyspnea/fever/N/V/diarrhea. Timing/Duration: other (BP elevated for 4 days) Modifying Factors: Improves With: nothing Associated Symptoms: denies symptoms Allergies/Adverse Reactions: betamethasone [From Memamp] Adverse Reaction (Verified 11/15/22 14:39) Hx Tetanus, Diphtheria Vaccination/Date Given: Yes Hx Influenza Vaccination/Date Given: Yes Hx Pneumococcal Vaccination/Date Given: Yes Immunizations Up to Date: Yes Travel Risk - International Travel Have you traveled outside of the country in past 3 weeks: No - Coronavirus Screening Are you exhibiting any of the following symptoms?: No Close contact with a COVID-19 positive Pt in past 14-21 Days: No - Vaccine Status Have you recieved a Covid-19 vaccination: Yes Process Helper: [employer] - Vaccination Dates Date of 2cond Vaccination (if applicable): unk - Review of Systems Constitutional: No Symptoms Eyes: No Symptoms Ears, Nose, & Throat: No Symptoms Respiratory: No Symptoms, Cough Cardiac: No Symptoms Abdominal/Gastrointestinal: No Symptoms Genitourinary Symptoms: No Symptoms Musculoskeletal: No Symptoms Skin: No Symptoms Neurological: No Symptoms, Other (Mildly lightheaded) Psychological: No Symptoms Endocrine: No Symptoms Hematologic/Lymphatic: No Symptoms Immunological/Allergic: No Symptoms - Past Medical History Pertinent Past Medical History: No Neurological History: No Pertinent History ENT History: No Pertinent History Cardiac History: No Pertinent History Respiratory History: Pneumonia Endocrine Medical History: No Pertinent History Musculoskeletal History: No Pertinent History GI Medical History: No Pertinent History History: No Pertinent History Psycho-Social History: Anxiety Female Reproductive Disorders: No Pertinent History - Past Surgical History Past Surgical History: Yes Neuro Surgical History: No Pertinent History Cardiac: No Pertinent History Respiratory: No Pertinent History Gastrointestinal: Cholecystectomy Genitourinary: No Pertinent History Musculoskeletal: No Pertinent History Female Surgical History: Hysterectomy, Tubal Ligation - Social History Smoking Status: Current every day smoker How long have you smoked: 50 Exposure to second hand smoke: Yes Drug Use: none Patient Lives Alone: Yes Significant Family History: no pertinent family hx - Nursing Vital Signs Nursing Vital Signs: Initial Vital Signs Temperature 97.3 F 11/23/22 09:16 Pulse Rate 75 11/23/22 09:16 Respiratory Rate 22 11/23/22 09:16 Blood Pressure 226/114 11/23/22 09:16 O2 Sat by Pulse Oximetry 96 11/23/22 09:16 Pain Scale Pain Intensity 0 Hypertensive - Physical Exam General Appearance: no apparent distress, anxiety Eye Exam: PERRL/EOMI, eyes nml inspection Ears, Nose, Throat Exam: normal ENT inspection, TMs normal, pharynx normal, moist mucous membranes Neck Exam: normal inspection, non-tender, supple, full range of motion, No meningismus, No mass, No Brudzinski, No Kernig's, No carotid bruit Respiratory Exam: crackles/rales (Faint rales at bases B/Scattered wheezes) Cardiovascular Exam: regular rate/rhythm, normal heart sounds, normal peripheral pulses, capillary refill <2 sec, No murmur Gastrointestinal/Abdomen Exam: soft, normal bowel sounds, No tenderness Back Exam: normal inspection, normal range of motion, No CVA tenderness, No vertebral tenderness Extremity Exam: normal inspection, normal range of motion Neurologic Exam: alert, oriented x 3, cooperative, rehabilitation services aide II-XII nml as tested, nml cerebellar function, nml station & gait, sensation nml, No motor deficits, No sensory deficit Skin Exam: normal color, warm, dry Lymphatic Exam: No adenopathy SpO2 Interpretation: normal SpO2: 96 O2 Delivery: Room Air - Course Nursing assessment & vital signs reviewed: Yes EKG Interpreted by Me: RATE (Sinus salome/Rate 58/Normal QT-QTc/LAFB/Low voltage/Flat T waves/No acute ST segment changes) - Radiology Exams Chest X-ray Interpretation: Interpreted by me (CXR-small B pleural effusions/No focal infiltrates/interstitual changes) - CT Exams Head CT Interpretation: Tele-radiologist Report (CT head negative) Ordered Tests: Active Orders 24 hr Category Date Time Status EKG-ER Only STAT Care 11/23/22 09:33 Completed CHEST 1 VIEW (PORTABLE) Stat Exams 11/23/22 09:49 Completed HEAD WITHOUT CONTRAST [CT] Stat Exams 11/23/22 09:49 Completed CBC W DIFF Stat Lab 11/23/22 10:03 Completed CMP Stat Lab 11/23/22 10:03 Completed TROPONIN Q4H Lab 11/23/22 10:03 Completed Medication Summary Discontinued Medications Generic Name Dose Route Start Last Admin Trade Name Miguel PRN Reason Stop Dose Admin Clonidine 0.2 mg 11/23/22 09:22 11/23/22 09:29 Clonidine Hcl 0.1 Mg Tablet PO 11/23/22 09:23 0.2 mg STAT ONE Administration Clonidine Confirm 11/23/22 09:22 Clonidine Hcl 0.1 Mg Tablet Administered 11/23/22 09:23 Dose 0.2 mg .ROUTE .STK-MED ONE Lab/Rad Data: Laboratory Result Diagrams 11/23/22 10:03 11/23/22 10:03 Laboratory Results 11/23/22 11/23/22 11/23/22 Range/Units 10:03 10:03 10:03 WBC 17.4 H (4.0-10.5) x10^3/uL RBC 4.61 (4.1-5.4) x10^6/uL Hgb 13.6 (12.0-16.0) g/dL Hct 39.5 (35-47) % MCV 85.7 (78-100) fL MCH 29.5 (26-32) pg MCHC 34.4 (32-36) g/dL RDW 12.8 (11.5-14.0) % Plt Count 301 (150-450) x10^3/uL MPV 8.7 (7.5-11.0) fL Gran % 75.8 H (36.0-66.0) % Immature Gran % (Auto) 2.3 H (0.00-0.4) % Nucleat RBC Rel Count 0.0 (0.00-0.1) % Eos # (Auto) 0.04 (0-0.5) x10^3/uL Immature Gran # (Auto) 0.40 H (0.00-0.03) x10^3u/L Absolute Lymphs (auto) 2.74 (1.0-4.6) x10^3/uL Absolute Monos (auto) 1.03 (0.0-1.3) x10^3/uL Absolute Nucleated RBC 0.00 (0.00-0.01) x10^3u/L Lymphocytes % 15.7 L (24.0-44.0) % Monocytes % 5.9 (0.0-12.0) % Eosinophils % 0.2 (0.00-5.0) % Basophils % 0.1 (0.0-0.4) % Absolute Granulocytes 13.17 H (1.4-6.9) x10^3/uL Basophils # 0.02 (0-0.4) x10^3/uL Sodium 131 L (137-145) mmol/L Potassium 3.4 L (3.5-5.1) mmol/L Chloride 101 (98-107) mmol/L Carbon Dioxide 29 (22-30) mmol/L Anion Gap 5.2 (5-15) MEQ/L BUN 14 (7-17) mg/dL Creatinine 0.52 (0.52-1.04) mg/dL Estimated GFR > 60.0 ML/MIN Glucose 101 (74-106) mg/dL Calcium 8.4 (8.4-10.2) mg/dL Total Bilirubin 0.90 (0.2-1.3) mg/dL AST 27 (14-36) U/L ALT 33 (0-35) U/L Alkaline Phosphatase 84 (38-126) U/L Troponin I 0.019 (0.000-0.034) ng/mL Serum Total Protein 6.1 L (6.3-8.2) g/dL Albumin 3.3 L (3.5-5.0) g/dL - Progress Progress: improved Progress Note: 11/23/22 10:52 BP improved w 0.2 po Clonidine Anxiety also inproved Pt states that she is ready to go home All labs reviewed CXR read per ER physician CT head neg per [facility] Pt wo chest pain/focal weakness/dyspnea in ER Will discharge pt as no evidence of CVA/MA and BP improved. Pt has leukocytosis but most likely due to prednisone, and pt is currently on Augmentin 11/23/22 23:11 Counseled pt/family regarding: lab results, diagnosis, need for follow-up, rad results - Departure Departure Disposition: Home Clinical Impression: Hypertensive urgency, Anxiety Condition: Stable Critical Care Time: No Referrals: OLIVIA RAND [Primary Care Provider] - Follow up/PCP as directed Instructions: Anxiety, Adult (DC), Malignant Hypertension (DC) Additional Instructions: Follow up with your family MD Return to ER for chest pain/focal weakness/shortness of breath/Temperature greater than 100.5/Worsening headache Prescriptions: Clonidine HCl 0.1 mg [Clonidine 0.1 mg Tablet] 0.1 mg PO TID PRN PRN #20 tab let PRN Reason: Hypertension
[2022-11-23 10:04] LABS: Absolute Neutrophil Ct (ANC) 13.17 x10^3/uL (1.4-6.9); Basophil (Absolute #) 0.02 x10^3/uL (0-0.4); Eosinophil % 0.2 % (0.00-5.0); Eosinophil (Absolute #) 0.04 x10^3/uL (0-0.5); Hematocrit 39.5 % (35-47); Hemoglobin 13.6 g/dL (12.0-16.0); Lymphocyte (Absolute #) 2.74 x10^3/uL (1.0-4.6); Lymphocytes % 15.7 % (24.0-44.0); Mean Cell Volume 85.7 fL (78-100); Mean Corpuscular Hemoglobin 29.5 pg (26-32); Mean Corpuscular Hgb Concent. 34.4 g/dL (32-36); Mean Platelet Volume 8.7 fL (7.5-11.0); Monocyte (Absolute #) 1.03 x10^3/uL (0.0-1.3); Monocytes % 5.9 % (0.0-12.0); Neutrophil % 75.8 % (36.0-66.0); Platelet Count 301 x10^3/uL (150-450); Red Blood Count 4.61 x10^6/uL (4.1-5.4); Red Cell Distribution Width 12.8 % (11.5-14.0); White Blood Count 17.4 x10^3/uL (4.0-10.5)
[2022-11-23 10:20] LABS: ALBUMIN 3.3 g/dL (3.5-5.0); ALKALINE PHOSPHATASE 84 U/L (38-126); ANION GAP 5.2 MEQ/L (5-15); BLOOD UREA NITROGEN 14 mg/dL (7-17); CHLORIDE 101 mmol/L (98-107); Calcium 8.4 mg/dL (8.4-10.2); Carbon Dioxide 29 mmol/L (22-30); Creatinine 1 0.52 mg/dL (0.52-1.04); EST GLOMERULAR FILTRATION RATE > 60.0 ML/MIN; Glucose 101 mg/dL (74-106); Potassium 3.4 mmol/L (3.5-5.1); SGOT/AST 27 U/L (14-36); SGPT/ALT 33 U/L (0-35); SODIUM 131 mmol/L (137-145); Total Protein 6.1 g/dL (6.3-8.2)
[2022-11-23 11:04] VITALS: BP 153/94; PULSE 55
--- NOTE | 2022-11-23 18:06 | XRAY ---
Indication: High blood pressure. Lightheaded. Comparison: November 15, 2022 Portable chest demonstrates new mild lingula infiltrate/atelectasis and small bibasilar effusions. Remaining chest unchanged again demonstrating COPD with chronic lung markings. Heart not enlarged. Bony thorax intact again with osteopenia.
--- NOTE | 2022-11-23 18:10 | XRAY ---
Indication: High blood pressure. Lightheaded. Multiple contiguous axial images obtained through the head without contrast. Comparison: None Normal appearing brain parenchyma, ventricles, and bony calvarium for patient's age. Partial opacification inferior right mastoid air cells presumed inflammatory. Visualized paranasal sinuses and left mastoid air cells are clear. Impression: Partial opacification right mastoid air cells presumed inflammatory. Remaining CT head without contrast exam is normal. Comment: Preliminary interpretation made by [facility]. No critical discrepancy.
[2022-11-23 23:12] VITALS: O2SAT 96
== END 2022-11-23 11:18 | disposition home or self-care (01) ==
LOC: ED 09:13
DX: I16.0 Hypertensive urgency (principal); I10 Essential (primary) hypertension; F41.9 Anxiety disorder, unspecified; R42 Dizziness and giddiness; Z79.899 Other long term (current) drug therapy; Z72.0 Tobacco use
CPT/HCPCS: 36415; 70450; 71045; 80053; 84484; 85025; 93005; 99283; A9270-GY